=== PATIENT | male | born 1950 | race Caucasian/White ===

== ENCOUNTER 2021-02-22 17:51 | Emergency (ER) | payer MEDICARE, SELFPAY ==
[2021-02-22 18:05] VITALS: BP 147/71; PULSE 81; RESP 20; TEMP 36.7; O2SAT 98
--- NOTE | 2021-02-22 18:05 | ED.EXTPRO ---
HPI - Extremity Problem General Chief complaint: Skin/Abscess/Foreign Body Stated complaint: open sores on leg Time Seen by Provider: 02/22/21 18:06 Source: patient and RN notes reviewed Mode of arrival: ambulatory Limitations: no limitations History of Present Illness HPI Narrative: 70-year-old man presents with concern for chronic swelling, redness, sores on his legs. Reports sores on his left lower leg that have been there for more than 1 month. Reports he had a vein surgery prior to the wounds appearing, reports he has followed up with the vein surgeon since he began to have swelling and wounds. Reports he finished cephalexin several weeks ago with mild improvement to the redness, however redness has worsened since he finished antibiotic. He denies using compression stockings or elevation. Denies fever, general malaise, streaking. MD Complaint: extremity swelling Related Data Home Medications Medication Instructions Recorded Confirmed fluticasone propion-salmeterol INHALATION 02/22/21 [Advair Diskus] silver sulfadiazine [SSD] applic TOPICAL 02/22/21 Allergies Allergy/AdvReac Type Severity Reaction Status Date / Time No Known Allergies Allergy Verified 04/09/20 10:38 Review of Systems Review of Systems: Narrative: CONSTITUTIONAL: Denies malaise, chills, sweats, or fever. CARDIOVASCULAR: Denies chest pain, palpitations, or edema. RESPIRATORY: Denies cough or dyspnea. SKIN: Reports 2 nonhealing wounds on his left lower leg, redness, swelling of bilateral lower extremities MUSCULOSKELETAL: Denies muscle skeletal pain NEUROLOGIC: Denies numbness, weakness. All systems reviewed & are unremarkable except as noted in HPI and below PMFSH Past Medical History Medical History (Updated 02/22/21 @ 18:26 by Aga Chavez NP) CAD in [place] artery COPD (chronic obstructive pulmonary disease) Dyslipidemia Vitamin D deficiency Surgical History Surgical History History of cataract extraction with lens replacement 2018 History of coronary artery stent placement 2013 History of knee surgery 2012 Hx of colonoscopy polys removed - 11/27/17 Hx of hemorrhoidectomy 2015 Family History Family History Sibling Hypertension Family history of cardiovascular disease Father Carcinoma of colon, Onset Age: 85 Other Asthma Social History Social History Smoking status: Never smoker Second hand tobacco smoke exposure: No Alcohol intake: current Substance use: never Substance use type: does not use Gender identity (if verbalized by the patient): Male Comments At time of signature, agree with nursing past medical, surgical, social and family history. There is no relevant family history pertinent to the presenting complaint Exam Narrative: Exam Narrative: GENERAL: Well-appearing, well-nourished, and in no acute distress. HEAD: Normocephalic EYES: PERRLA, conjunctivae clear ENT: Mucous membranes moist. NECK: Supple. CHEST: No respiratory distress. Speaks in full sentences. HEART: Regular rate and rhythm EXTREMITIES: Bilateral lower extremities have normal range of motion, normal strength SKIN: Warm, dry plus pitting edema bilateral lower extremities with erythema. Left leg is more erythematous with 2 superficial ulcers with pink tissue beds with serosanguineous fluid weeping. NEURO: Alert and oriented x3. PSYCH: Normal mood and affect Course Course Emergency Course: Extensive education given the patient on importance of wearing compression stockings and elevation of his legs. Discussed pros and cons of another course of antibiotics, patient understands and would like to try another round of antibiotics. Discussed importance of following up with wound care and primary care doctor. Patient is aware of diagnosis, understands and agrees
== END 2021-02-22 18:30 | disposition home or self-care (01) ==
PROVIDERS: Emergency Provider Nurse Practitioner; PCP Family Medicine
DX: I87.2 Venous insufficiency (chronic) (peripheral) (principal); S81.802A Unspecified open wound, left lower leg, initial encounter; X58.XXXA Exposure to other specified factors, initial encounter; I25.10 Atherosclerotic heart disease of native coronary artery without angina pectoris; J44.9 Chronic obstructive pulmonary disease, unspecified; E78.5 Hyperlipidemia, unspecified; E55.9 Vitamin D deficiency, unspecified; Z95.5 Presence of coronary angioplasty implant and graft; Z98.42 Cataract extraction status, left eye; Z98.41 Cataract extraction status, right eye
CPT/HCPCS: 99213; G0463

== ENCOUNTER 2022-09-24 11:28 | Emergency (ER) | payer MEDICARE, SELFPAY ==
[2022-09-24 11:43] VITALS: BP 152/85; PULSE 91; RESP 16; TEMP 36.2; O2SAT 95
--- NOTE | 2022-09-24 12:01 | ED.SOB ---
HPI - SOB/Dyspnea General Chief Complaint: Shortness of Breath/Dyspnea Stated Complaint: shortness of breath Time Seen by Provider: 09/24/22 11:50 Source: patient Mode of arrival: ambulatory Limitations: no limitations History of Present Illness HPI Narrative: Daren is a 72-year-old male patient presenting to clinic today with complaints of shortness of breath x3 days. He reports he does have a history of COPD. States that his cough was productive but is now not productive. Reports that it was a greenish brown coloration when coughing. He denies any fever or chills Related Data Allergies Allergy/AdvReac Type Severity Reaction Status Date / Time No Known Allergies Allergy Verified 09/24/22 12:25 Review of Systems Review of Systems: Pertinent positives per HPI. Patient denies any fever, chills, rash, headache, visual changes, dizziness, chest pain, palpitations, nausea, vomiting, diarrhea, constipation, abdominal pain, or any urinary issues. PMFSH Past Medical History Medical History CAD in [place] artery COPD (chronic obstructive pulmonary disease) Dyslipidemia Vitamin D deficiency Surgical History Surgical History History of cataract extraction with lens replacement 2018 History of coronary artery stent placement 2013 History of knee surgery 2012 Hx of colonoscopy polys removed - 11/27/17 Hx of hemorrhoidectomy 2015 Family History Family History Sibling Hypertension Family history of cardiovascular disease Father Carcinoma of colon, Onset Age: 85 Other Asthma Social History Social History Smoking status: Never smoker Second hand tobacco smoke exposure: No Alcohol intake: current Alcohol use details: consumes 1 mixed drink monthly Substance use: never Substance use type: does not use Gender identity (if verbalized by the patient): Male Comments At the time of my signature, I reviewed and agree with the nursing past medical, surgical, social, and family history. There is no relevant family history pertinent to the patient complaint. Exam Narrative: General: Well-developed, obese, in no apparent distress Head: Normocephalic, atraumatic Eyes: Pupils equally round and reactive to light bilaterally, EOM intact, sclera and conjunctive clear, no discharge, lids normal Ears: TMs intact and clear, ear canals clear, no drainage, grossly hearing normal. Nose: Nares patent, no discharge, no inflammation, no sinus tenderness. Mouth: Oral pharynx without lesions or masses, good dentition, MMM. Neck: Supple, trachea midline, no enlargement of anterior or posterior cervical nodes, no thyroid masses or goiter palpable. Cardio: Regular rate and rhythm, s1 and s2 normal, no murmur appreciated. Resp: Expiratory wheezing and rhonchi, no rales or rubs Course Course Emergency Course: Portions of this record may have been created with voice recognition software. Level of Care: Express Care Visit Vital Signs Vital signs: Vital Signs Temperature 36.2 C L 09/24/22 11:43 Pulse Rate 91 09/24/22 11:43 Respiratory Rate 16 09/24/22 11:43 Blood Pressure 152/85 H 09/24/22 11:43 Pulse Oximetry 95 09/24/22 11:43 Temperature 36.2 C L 09/24/22 11:43 Pulse Rate 91 09/24/22 11:43 Respiratory Rate 16 09/24/22 11:43 Blood Pressure 152/85 H 09/24/22 11:43 Pulse Oximetry 95 09/24/22 11:43 Vital signs reviewed MDM - SOB/Dyspnea MDM Narrative Medical decision making narrative: At the time of visit patient is resting comfortably on the exam chair. He has expiratory wheezing and rhonchi. I suspect he has COPD exacerbation wound given prescription of azithromycin, appear on hilar, and prednisone. Supportive measures were
== END 2022-09-24 12:15 | disposition home or self-care (01) ==
PROVIDERS: Emergency Provider Nurse Practitioner Family; PCP Family Medicine
DX: J44.1 Chronic obstructive pulmonary disease with (acute) exacerbation (principal); E78.5 Hyperlipidemia, unspecified; I25.10 Atherosclerotic heart disease of native coronary artery without angina pectoris; Z98.49 Cataract extraction status, unspecified eye; Z96.1 Presence of intraocular lens; Z95.5 Presence of coronary angioplasty implant and graft
CPT/HCPCS: 99213; G0463

== ENCOUNTER 2023-09-02 08:10 | Emergency (ER) | payer MEDICARE, SELFPAY ==
[2023-09-02 08:18] VITALS: BP 120/63; PULSE 80; RESP 24; TEMP 36.4; O2SAT 94
--- NOTE | 2023-09-02 08:28 | ED.URI ---
HPI - URI/Sore Throat General Chief Complaint: Upper Respiratory Infection Stated Complaint: Congestion and Trouble Breathing History of Present Illness HPI Narrative: 3 day history of cough and nasal congestion. Patient has a history of COPD and uses Advair inhaler daily as prescribed. Patient states he has a productive cough the cough is worse at night. No shortness of breath an no chest pain. Related Data Home Medications Medication Instructions Recorded Confirmed fluticasone 250 mcg-salmeterol 50 1 ea inhalation DIRECTED 09/02/23 09/02/23 mcg/dose blistr powdr for inhalation (Advair Diskus) Allergies Allergy/AdvReac Type Severity Reaction Status Date / Time No Known Allergies Allergy Verified 09/02/23 08:31 Review of Systems Review of Systems: CONSTITUTIONAL: Denies chills, or sweats. Reports fever and generalized body aches EYES: Denies visual changes, redness, or discharge. ENT: Denies otalgia. Reports nasal congestion runny nose and sore throat CARDIOVASCULAR: Denies chest pain, palpitations, or edema. RESPIRATORY: Denies dyspnea. Reports occasional cough GASTROINTESTINAL: Denies abdominal pain, nausea, vomiting, or diarrhea. GENITOURINARY: Denies dysuria or hematuria. SKIN: Denies rash or itching. MUSCULOSKELETAL: Denies back pain, joint pain, or myalgia. Reports generalized body aches NEUROLOGIC: Denies headache, numbness, or weakness. PSYCHIATRIC: Denies anxiety or depression. [facility] Past Medical History Medical History CAD in [place] artery COPD (chronic obstructive pulmonary disease) Dyslipidemia Vitamin D deficiency Surgical History Surgical History History of cataract extraction with lens replacement 2018 History of coronary artery stent placement 2013 History of knee surgery 2012 Hx of colonoscopy polys removed - 11/27/17 Hx of hemorrhoidectomy 2015 Family History Family History Sibling Hypertension Family history of cardiovascular disease Father Carcinoma of colon, Onset Age: 85 Other Asthma Social History Social History Smoking status: Never smoker Second hand tobacco smoke exposure: No Alcohol intake: current Alcohol use details: consumes 1 mixed drink monthly Substance use: never Substance use type: does not use Gender identity (if verbalized by the patient): Male Comments At time of signature, agree with nursing past medical, surgical, social and family history. There is no relevant family history pertinent to the presenting complaint Exam Narrative: The patient is a well-developed, well-nourished in no acute distress. SKIN: Skin is warm and dry without erythema, swelling or exudate. There is good turgor. No tenting. HEAD: Atraumatic. Normocephalic. No temporal or scalp tenderness. EYES: Moist and bright. Sclera and conjunctivae normal. No discharge. PERRLA. Extraocular motions intact. Gross visual acuity intact. EARS: Pinna is normal shape and contour. Clear external auditory canals. TM pearly vega with good cone of light, no erythema or suppuration. Bilateral cerumen noted no gross hearing deficit. NOSE: pink, moist mucosa with good air movement. Clear rhinorrhea without nasal flaring. Septum midline. Mouth: moist mucous membranes. THROAT; mild erythema noted to posterior oropharynx with moderate postnasal drainage. Without exudate or ulceration.. Uvula midline. Normal movement of soft palate. NECK: Supple and nontender with full range of motion without discomfort. No meningeal signs. LUNGS: Equal and bilateral breath sounds without wheezes, rales or rhonchi. CHEST: The chest wall is without retractions or use of accessory muscles. HEART: Has a regular rate and rhythm without murmur, gallops
== END 2023-09-02 08:53 | disposition home or self-care (01) ==
PROVIDERS: Emergency Provider Nurse Practitioner Family; PCP Family Medicine
DX: J44.1 Chronic obstructive pulmonary disease with (acute) exacerbation (principal); I25.10 Atherosclerotic heart disease of native coronary artery without angina pectoris; E78.5 Hyperlipidemia, unspecified; Z20.822 Contact with and (suspected) exposure to COVID-19
CPT/HCPCS: 87426; 87804; 99213; C9803; G0463

== ENCOUNTER 2023-11-16 14:37 | Emergency (ER) | payer MEDICARE, SELFPAY ==
[2023-11-16 14:48] VITALS: BP 153/79; PULSE 76; RESP 16; TEMP 36.5; O2SAT 97
--- NOTE | 2023-11-16 15:00 | ED.DIZZY ---
HPI - Dizziness General Chief Complaint: Dizziness Stated Complaint: DIZZY Time Seen by Provider: 11/16/23 14:50 Source: patient and RN notes reviewed Mode of arrival: ambulatory Limitations: no limitations History of Present Illness HPI Narrative: Patient presents today complaining of sudden-onset dizziness, fatigue, and, ?fuzziness? that started 1 hour ago when patient tried to go from standing to sitting position. Denies any additional symptoms to include shortness of breath, chest pain, nausea or vomiting, numbness or tingling in the extremities, headache, vision changes. Dizziness does not worsen with movement of the head. Denies history of CVA/TIA. History of 1 cardiac stent and COPD. Denies any recent illness Related Data Home Medications Medication Instructions Recorded Confirmed fluticasone 250 mcg-salmeterol 50 1 ea inhalation DIRECTED 09/02/23 09/02/23 mcg/dose blistr powdr for inhalation (Advair Diskus) albuterol sulfate 90 mcg/actuation inhalation 11/16/23 aerosol inhaler atorvastatin 40 mg tablet mg 11/16/23 fluticasone 250 mcg-salmeterol 50 inhalation 11/16/23 mcg/dose blistr powdr for inhalation (Advair Diskus) Allergies Allergy/AdvReac Type Severity Reaction Status Date / Time No Known Allergies Allergy Verified 11/16/23 14:45 Review of Systems Review of Systems: CONSTITUTIONAL: Denies body aches, fever, chills, or sweats. EYES: Denies visual changes, redness, or discharge. ENT: Denies rhinorrhea, congestion, sore throat, or otalgia. CARDIOVASCULAR: Denies chest pain, palpitations, or edema. RESPIRATORY: Denies cough or dyspnea. GASTROINTESTINAL: Denies abdominal pain, nausea, vomiting, or diarrhea. GENITOURINARY: Denies dysuria or hematuria. SKIN: Denies rash, itching, or wounds. MUSCULOSKELETAL: Denies back pain, joint pain, or myalgia. NEUROLOGIC: Denies headache, numbness, tingling. + dizziness, fussiness, fatigue PSYCH: Denies depression or anxiety. [facility] Past Medical History Medical History CAD in [place] artery COPD (chronic obstructive pulmonary disease) Dyslipidemia Vitamin D deficiency Surgical History Surgical History History of cataract extraction with lens replacement 2018 History of coronary artery stent placement 2013 History of knee surgery 2012 Hx of colonoscopy polys removed - 11/27/17 Hx of hemorrhoidectomy 2015 Family History Family History Sibling Hypertension Family history of cardiovascular disease Father Carcinoma of colon, Onset Age: 85 Other Asthma Social History Social History Smoking status: Never smoker Second hand tobacco smoke exposure: No Alcohol intake: current Alcohol use details: consumes 1 mixed drink monthly Substance use: never Substance use type: does not use Gender identity (if verbalized by the patient): Male Comments At time of signature, I have reviewed and agree with nursing past medical, surgical, social and family history unless otherwise noted. Please see nursing chart for further information. There is no relevant family history pertinent to the presenting complaint Exam Narrative: GENERAL: Well-appearing, well-nourished, and in no acute distress. HEAD: Normocephalic, atraumatic. EYES: EOMI. PERRL. No redness or drainage. Conjunctivae normal. ENT: Mucous membranes pink and moist. NECK: Normal AROM. Supple. No lymphadenopathy. CHEST: No respiratory distress. Expiratory wheezing throughout. HEART: Regular rate and rhythm. No murmur appreciated. ABDOMEN: Soft, nontender, nondistended, normal active bowel sounds. EXTREMITIES: Normal range of motion. No edema. SKIN: Warm, dry, no rash. Capillary refill normal. Normal skin turgor.
== END 2023-11-16 15:01 | disposition short-term general hospital (02) ==
PROVIDERS: Emergency Provider Nurse Practitioner; PCP Family Medicine
DX: R42 Dizziness and giddiness (principal); I25.10 Atherosclerotic heart disease of native coronary artery without angina pectoris; J44.9 Chronic obstructive pulmonary disease, unspecified; E78.5 Hyperlipidemia, unspecified; E55.9 Vitamin D deficiency, unspecified; Z95.5 Presence of coronary angioplasty implant and graft
CPT/HCPCS: 99213; G0463

== ENCOUNTER 2023-11-16 15:26 | Emergency (ER) | payer MEDICARE, SELFPAY ==
[2023-11-16] VITALS (29 sets, daily range): BP systolic 132–178; BP diastolic 60–89; PULSE 61–84; RESP 13–22; TEMP 36.6; O2SAT 95–100
--- NOTE | ~2023-11-16 | CT_ITS ---
EXAMINATION: CT chest abdomen pelvis w con DATE: 11/16/2023 18:01 INDICATION: Dizziness and bloody stools, possible lung nodule on chest radiograph TECHNIQUE: Transaxial computed tomographic images of the chest, abdomen, and pelvis were obtained aft er the administration of 100 cc of Omnipaque 350 intravenous contrast. The dose-length product (DLP) was 2099.57 mGy-cm. Automated exposure control and iterative reconstruction technique were employed. COMPARISON: 05/28/2019 FINDINGS: CHEST CT: There is mild dependent atelectasis. No pleural effusion or pneumothorax. No suspicious pulmonary nod ule is identified. There is a bridging osteophyte in the midthoracic spine which correlates with the finding in question on today's chest radiograph. No pathologically enlarged thoracic lymph nodes are identified. The heart size is normal. There is calcified coronary artery atherosclerosis. There is mo derate thoracic spondylosis. ABDOMEN/PELVIS CT: The liver is diffusely low in attenuation when compared with the spleen, consistent with hepatic stea tosis. The spleen, pancreas, gallbladder, and adrenal glands are normal. The left kidney is unremarka ble. There is a 12 mm cyst of the right kidney. The appendix is normal. No pathologically enlarged ab dominal or pelvic lymph nodes are identified. No free intraperitoneal gas or evidence of bowel obstru ction. The appendix is normal. There is a left inguinal hernia containing fat and a short segment of nonobstructed sigmoid colon. There is mild lumbar spondylosis. IMPRESSION: 1. No suspicious lung nodule identified. 2. No CT correlate for the patient's bloody stools. 3. Left inguinal hernia containing fat and a short segment of nonobstructed small bowel.. Reviewed, dictated and finalized at location F. ROOM OPERATOR IMPRESSION: 1. No suspicious lung nodule identified. 2. No CT correlate for the patient's bloody stools. 3. Left inguinal hernia containing fat and a short segment of nonobstructed sma ll bowel..
--- NOTE | ~2023-11-16 | XR_ITS ---
EXAMINATION: XR chest 2V DATE: 11/16/2023 16:06 INDICATION: Dizziness TECHNIQUE: AP and lateral views of the chest are obtained. COMPARISON: 04/17/2019 FINDINGS: There is a nodular opacity projecting over the midthoracic spine on the lateral view. No pl eural effusion or pneumothorax. The cardiomediastinal silhouette is normal. There is moderate thoraci c spondylosis. IMPRESSION: 1. Nodular opacity projecting over the spine on the lateral view. Although finding may be infectious or inflammatory, follow-up with CT of the chest is recommended. Reviewed, dictated and finalized at location F. A TRAFFIC MANAGER IMPRESSION: 1. Nodular opacity projecting over the spine on the lateral view. Although find ing may be infectious or inflammatory, follow-up with CT of the chest is recomm ended.
--- NOTE | 2023-11-16 15:32 | ECG_ITS ---
Measurements Intervals [place] Rate: 80 P: 56 SC: 218 QRS: -75 QRSD: 146 T: 13 QT: 415 QTc: 480 Interpretive Statements SINUS RHYTHM WITH FIRST DEGREE AV BLOCK RIGHT BUNDLE BRANCH BLOCK LEFT ANTERIOR FASCICULAR BLOCK ABNORMAL ECG COMPARED TO ECG 05/28/2019 09:43:46 NO SIGNIFICANT CHANGES Electronically Signed On 11-16-2023 16:00:19 V [employer] by Taz Mabry D.O.
[2023-11-16 16:01] LABS: Basophils Absolute Auto 0.1 K/mm3 (0.0-0.1); Basophils Percent Auto 0.8 % (0.2-1.2); Eosinophils Absolute Auto 0.3 K/mm3 (0-0.3); Eosinophils Percent Auto 3.5 % (0-4.4); Hematocrit 45.4 % (42.0-52.0); Hemoglobin 14.9 g/dL (14.0-18.0); Immature Granulocyte Absolute 0.02 K/mm3 (0.00-0.031); Immature Granulocyte Percent A 0.3 % (0-0.5); Immature Platelet Fraction Pct 2.3 % (0.9-11.2); Lymphocytes Absolute Auto 0.95 K/mm3 (0.9-3.2); Lymphocytes Percent Auto 12.9 % (18.3-44.2); Mean Corpuscular HGB Conc 32.8 g/dl (32-36); Mean Corpuscular Hemoglobin 29.6 pg (26-34); Mean Corpuscular Volume 90.1 fl (80-100); Mean Platelet Volume 9.5 fl (7.4-10.4); Monocytes Absolute Auto 0.7 K/mm3 (0.1-0.6); Monocytes Percent Auto 8.8 % (2.6-8.5); Neutrophils Absolute Auto 5.4 K/mm3 (1.3-6.7); Neutrophils Percent Auto 73.7 % (45.5-73.1); Platelet Count Result 133 k/mm3 (150-375); Red Blood Count 5.04 M/mm3 (4.6-6.20); Red Cell Distribution Width 13.2 % (11.5-14.5); White Blood Count 7.4 K/mm3 (4.5-10.0)
[2023-11-16 16:06] LABS: Alanine Aminotransferase 41 U/L (6-50); Albumin Level 4.1 g/dL (3.5-5.1); Alkaline Phosphatase 53 U/L (38-126); Anion Gap 5 mmol/L (8-16); Aspartate Amino Transferase 40 U/L (17-59); Bilirubin,Total 0.5 mg/dL (0.2-1.3); Blood Urea Nitrogen 18 mg/dL (9-20); Calcium 8.7 mg/dL (8.4-10.2); Carbon Dioxide 32 mmol/L (22-30); Chloride 103 mmol/L (98-107); Estimated CRCL calculation 83 ml/min; Estimated Glomerular Filt Rate > 60; Glucose 102 mg/dL (65-110); Potassium 3.9 mmol/L (3.4-5.0); Sodium 140 mmol/L (137-145)
[2023-11-16 16:16] LABS: Troponin I 0.014 ng/mL (0.000-0.034)
--- NOTE | 2023-11-16 17:28 | ED.DIZZY ---
HPI - Dizziness General Chief Complaint: Dizziness Stated Complaint: sent from , dizzy Time Seen by Provider: 11/16/23 17:00 History of Present Illness HPI Narrative: Year old male with history of CAD, COPD, dyslipidemia reports for evaluation for lightheadedness that started around 1:30 p.m. today. Patient states he was sitting in his chair and felt normal, then tried to stand up felt lightheaded. States he sat back down and attempted to stand up again, and again felt lightheaded which prompted him to contact his family who brought him to urgent care. Patient urgent care was advised to come to the ER for further evaluation. He states he has a history of vertigo and this does not feel like vertigo, he denies a sensation of the room spinning and instead states it feels like he is lightheaded may pass out. He denies syncope. He does report intermittent headaches for the past few weeks but states he is not currently having a headache. He reports progressively worsening vision over the past few months, however denies acute vision changes including diplopia or loss of vision. He reports shortness of breath secondary to COPD that is unchanged from his baseline. Denies chest pain, abdominal pain, nausea or vomiting, cough or congestion, fever, dysuria or hematuria, urinary frequency urgency, focal numbness or weakness. Patient states he has had soft stools throughout this week and has noticed some blood in his stool the past few weeks intermittently, specifically when he wipes. He notes that his father had history of colon cancer and he has been getting colonoscopies every 5 years, he believes his last colonoscopy was 3-4 years ago. He states he has always told he has polyps but otherwise believes they are unremarkable. He denies hematemesis or hematochezia. Denies lower extremity edema, rash, or palpitations. In triage, patient is blood pressure while sitting was 172/70, standing was 148/73. Related Data Home Medications Medication Instructions Recorded Confirmed fluticasone 250 mcg-salmeterol 50 1 ea inhalation DIRECTED 09/02/23 11/16/23 mcg/dose blistr powdr for inhalation (Advair Diskus) atorvastatin 40 mg tablet 40 mg PO DAILY 11/16/23 11/16/23 Allergies Allergy/AdvReac Type Severity Reaction Status Date / Time No Known Allergies Allergy Verified 11/16/23 14:45 Review of Systems Review of Systems: CONSTITUTIONAL: Denies fever, chills, or sweats. EYES: Denies visual changes, redness, or discharge. ENT: Denies rhinorrhea, congestion, sore throat, or otalgia. CARDIOVASCULAR: Denies chest pain, palpitations, or edema. RESPIRATORY: Denies cough or dyspnea. GASTROINTESTINAL: see HPI GENITOURINARY: Denies dysuria or hematuria. SKIN: Denies rash or itching. MUSCULOSKELETAL: Denies back pain, joint pain, or myalgia. NEUROLOGIC: See HPI PSYCHIATRIC: Denies anxiety or depression. [facility] Past Medical History Medical History CAD in [place] artery COPD (chronic obstructive pulmonary disease) Dyslipidemia Vitamin D deficiency Surgical History Surgical History History of cataract extraction with lens replacement 2018 History of coronary artery stent placement 2013 History of knee surgery 2012 Hx of colonoscopy polys removed - 11/27/17 Hx of hemorrhoidectomy 2015 Family History Family History Sibling Hypertension Family history of cardiovascular disease Father Carcinoma of colon, Onset Age: 85 Other Asthma Social History Social History Smoking status: Never smoker Second hand tobacco smoke exposure: No Alcohol intake: current Alcohol use details: consumes 1 mixed drink monthly Substance use: never Substance use type: does not use Gender identity (if verbal
[2023-11-16] MEDS: IPRATROPIUM 0.5 MG/ALBUTEROL SULFATE 2.5 MG AMPUL.NEB 3 ML INHALATION (17:30)
[2023-11-16] MEDS: SODIUM CHLORIDE 0.9% IV 1,000 ML 999 ML IV CONT ×2 (17:45→20:20)
[2023-11-16 17:56] LABS: INR 1.1; Prothrombin Time 14.1 Seconds (11.1-14.7)
[2023-11-16 17:57] LABS: Partial Thromboplastin Time 34.7 SECONDS (22.3-36.8)
[2023-11-16 18:04] LABS: Lactic Acid Reflex 1.4 mmol/L (0.7-2.0)
[2023-11-16 18:33] LABS: NT Pro B Type Natriuretic Pept 166 pg/mL (19.9-100)
[2023-11-16 19:20] LABS: Appearance Urine Clear (Clear); Bilirubin Urine Negative (Negative); Blood Urine Negative (Negative); Color Urine Yellow (Yellow); Glucose Urine UA Negative (Negative); Ketones Urine Negative (Negative); Leukocyte Esterase Ur Negative LEU/UL (Negative); Nitrate Urine Negative (Negative); Protein Urine Negative (Negative); Specific Grav Ur 1.029 (1.001-1.035); pH Urine 6.5 (5.0-9.0)
[2023-11-16 19:36] LABS: Add Urine Microscopic? NO
[2023-11-16 21:10] LABS: Influenza A QL RT-PCR Negative (Negative); Influenza B QL RT-PCR Negative (Negative); RSV RNA, RT-PCR Negative (Negative); SARS-CoV-2 RNA PCR Negative (Negative)
== END 2023-11-16 22:10 | disposition home or self-care (01) ==
PROVIDERS: Emergency Medicine; Emergency Provider Physician Assistant; PCP Family Medicine
DX: R42 Dizziness and giddiness (principal); K64.9 Unspecified hemorrhoids; K62.5 Hemorrhage of anus and rectum; R06.02 Shortness of breath; Z20.822 Contact with and (suspected) exposure to COVID-19; I25.10 Atherosclerotic heart disease of native coronary artery without angina pectoris; J44.9 Chronic obstructive pulmonary disease, unspecified; E78.5 Hyperlipidemia, unspecified; E55.9 Vitamin D deficiency, unspecified; Z96.1 Presence of intraocular lens; Z98.49 Cataract extraction status, unspecified eye; Z95.5 Presence of coronary angioplasty implant and graft; Z86.010 Personal history of colon polyps
CPT/HCPCS: 36415; 71046; 71260; 74177; 80053; 81003; 83605; 83735; 83880; 84484; 85025; 85055; 85610; 85730; 87637; 93005; 94640; 96360; 96361; 99284; J7030; Q9967

== ENCOUNTER 2024-05-10 08:26 | Emergency (ER) | payer MEDICARE, SELFPAY ==
[2024-05-10 08:38] VITALS: BP 125/47; PULSE 71; RESP 16; TEMP 36.3; O2SAT 97
--- NOTE | 2024-05-10 08:55 | ED.EXTPRO ---
HPI - Extremity Problem General Chief complaint: Extremity Problem,Nontraumatic Stated complaint: Skin Sore/Right Foot Time Seen by Provider: 05/10/24 08:55 Source: patient Mode of arrival: ambulatory Limitations: no limitations History of Present Illness HPI Narrative: 74 yo M presents with painful sore to bottom of R foot for 3 to 4 days. Pain worse when ambulatory. States today wound opened up and began draining. Pt concerned for infection. Afebrile. Denies hx of diabetes. All systems reviewed and negative except as noted above. Related Data Home Medications Medication Instructions Recorded Confirmed fluticasone 250 mcg-salmeterol 50 1 ea inhalation DIRECTED 09/02/23 11/16/23 mcg/dose blistr powdr for inhalation (Advair Diskus) atorvastatin 40 mg tablet 40 mg PO DAILY 11/16/23 11/16/23 Allergies Allergy/AdvReac Type Severity Reaction Status Date / Time No Known Allergies Allergy Verified 11/16/23 14:45 Review of Systems Review of Systems: CONSTITUTIONAL: Denies fever, chills, or sweats. EYES: Denies visual changes, redness, or discharge. ENT: Denies rhinorrhea, congestion, sore throat, or otalgia. CARDIOVASCULAR: Denies chest pain, palpitations, or edema. RESPIRATORY: Denies cough or dyspnea. GASTROINTESTINAL: Denies abdominal pain, nausea, vomiting, or diarrhea. GENITOURINARY: Denies dysuria or hematuria. SKIN: Denies rash or itching. MUSCULOSKELETAL: Denies back pain, joint pain, or myalgia. Reports open wound to plantar aspect of right foot. NEUROLOGIC: Denies headache, numbness, or weakness. PSYCHIATRIC: Denies anxiety or depression. All other systems reviewed are negative, except as documented in HPI. [facility] Past Medical History Medical History CAD in [place] artery COPD (chronic obstructive pulmonary disease) Dyslipidemia Vitamin D deficiency Surgical History Surgical History History of cataract extraction with lens replacement 2018 History of coronary artery stent placement 2013 History of knee surgery 2012 Hx of colonoscopy polys removed - 11/27/17 Hx of hemorrhoidectomy 2015 Family History Family History Sibling Hypertension Family history of cardiovascular disease Father Carcinoma of colon, Onset Age: 85 Other Asthma Social History Social History Smoking status: Never smoker Second hand tobacco smoke exposure: No Alcohol intake: current Alcohol use details: consumes 1 mixed drink monthly Substance use: never Substance use type: does not use Gender identity (if verbalized by the patient): Male Comments At time of signature, agree with nursing past medical, surgical, social and family history. There is no relevant family history pertinent to the presenting complaint. Exam Narrative: GENERAL: This is a well-nourished, well-developed patient, in no apparent distress. HEAD: normocephalic, atraumatic. EYES: PERRL. Sclera clear/white. Vision is grossly intact. EARS: External ears normal NOSE: External nose normal NECK: Neck supple, non-tender without lymphadenopathy, masses or thyromegaly. CARDIOVASCULAR: Regular rate and rhythm without murmurs, gallops, or rubs. RESPIRATORY: Clear to auscultation. Breath sounds equal bilaterally. No wheezes, rales, or rhonchi. SKIN: warm, Dry, intact with no suspicious lesions or rash, good texture and turgor. open wound to plantar aspect of R foot approx. 2cm diameter draining small amount malodorous purulent drainage. tender on palpation. NEURO: awake, alert, and oriented to person, place and time. There were no obvious focal neurologic abnormalities. EXTREMITIES: No joint tenderness, effusion, or edema noted. Course Course Level of Care: Express Care Visit Vital Signs
== END 2024-05-10 09:09 | disposition home or self-care (01) ==
PROVIDERS: Emergency Provider Nurse Practitioner Family; PCP Family Medicine
DX: L08.9 Local infection of the skin and subcutaneous tissue, unspecified (principal); I25.10 Atherosclerotic heart disease of native coronary artery without angina pectoris; J44.9 Chronic obstructive pulmonary disease, unspecified; E78.5 Hyperlipidemia, unspecified; E55.9 Vitamin D deficiency, unspecified; Z95.5 Presence of coronary angioplasty implant and graft
CPT/HCPCS: 99213; G0463